=== PATIENT | female | born 1985 | race Caucasian/White ===

== ENCOUNTER 2019-03-05 18:45 | Emergency (ER) | payer MEDICAID, OTHER ==
[2019-03-05 19:18] VITALS: BP 122/80
[2019-03-05] MEDS ORDERED: TETRACAINE HCL 0.5% OPH SOLN 4 ML OS ONE (19:45)
[2019-03-05] MEDS ORDERED: ERYTHROMYCIN 0.5% OPH OINT 1 GM UNIT DOSE OS ONE (20:26)
[2019-03-05] MEDS ORDERED: KETOROLAC TROMETHAMINE 0.45% 4 DROP/0.4 ML DROPERETTE OS ONE ×2 (20:28→20:52)
--- NOTE | 2019-03-05 20:31 | ER Document Report ---
ED Eye Complaint - General Mode of Arrival: Ambulatory Information source: Patient TRAVEL OUTSIDE OF THE [place] IN LAST 30 DAYS: No - HPI Eye location: Left Injury: Yes Occurred at: Outdoors, Public place, Work Quality of pain: Burning, Sharp Severity: Moderate Pain Level: 3 Exposure: Projectile Safety glasses worn: No Contact lenses worn: No Associated symptoms: Burning, Pain, Photophobia - General Chief Complaint: Eye Problem Stated Complaint: EYE ISSUES Time Seen by Provider: 03/05/19 19:45 Primary Care Provider: CHET FELIPE MD [ACTIVE STAFF] - Follow up tomorrow LOCALMD,ROSY [Primary Care Provider] - Follow up as needed Notes: 33-year-old female presented to ED for pain redness and bump on her eye. She states she was working at the [employer] on Wednesday when she felt like something flew in her eye. She states her eye got red on Wednesday and then worse last night. She states he noticed the bump yesterday and it was larger today. She states the eye is more painful. She states she has had stye before but never one on an eyeball. Patient is alert oriented respirations regular and unlabored speaking in full sentences walks with a even steady gait. (PATIENCE MCNEAL) - Related Data Allergies/Adverse Reactions: No Known Allergies Allergy (Verified 03/05/19 18:57) Past Medical History - General Information source: Patient - Social History Smoking Status: Current Every Day Smoker Cigarette use (# per day): Yes - Half pack a day Chew tobacco use (# tins/day): No Smoking Education Provided: Yes - 4 minutes Frequency of alcohol use: None Drug Abuse: Marijuana, Other - On methadone due to opiate addiction Occupation: Skater at [employer] Lives with: Parents Family History: Reviewed & Not Pertinent Patient has suicidal ideation: No Patient has homicidal ideation: No - Past Medical History Cardiac Medical History: Reports: None Pulmonary Medical History: Reports: None EENT Medical History: Reports: Eyes - Stye Neurological Medical History: Reports: None Endocrine Medical History: Reports: None Renal/ Medical History: Reports: Hx Ovarian Cysts Malignancy Medical History: Reports: None GI Medical History: Reports: None Musculoskeletal Medical History: Reports None Skin Medical History: Reports None Psychiatric Medical History: Reports: Hx Anxiety Traumatic Medical History: Reports: None Infectious Medical History: Reports: None Past Surgical History: Reports: Hx Gynecologic Surgery - Ovarian cyst removed x3 - Immunizations Immunizations up to date: Yes Review of Systems - Review of Systems Constitutional: No symptoms reported EENT: Eye pain, Tearing, Other - Injury to eye Cardiovascular: No symptoms reported Respiratory: No symptoms reported Gastrointestinal: No symptoms reported Genitourinary: No symptoms reported Female Genitourinary: No symptoms reported Musculoskeletal: No symptoms reported Skin: No symptoms reported Hematologic/Lymphatic: No symptoms reported Neurological/Psychological: No symptoms reported -: Yes All other systems reviewed and negative Physical Exam - Vital signs Interpretation: Normal - General General appearance: Appears well, Alert - HEENT Head: Normocephalic, Atraumatic Eyes: Normal, Tears Conjunctiva: Injected Cornea: Corneal abrasion, Flourescein stain uptake Extraocular movements intact: Yes Eyelashes: Normal Pupils: PERRL Visual acuity- Right eye: 20/25 Visual acuity- Left eye: 20/25 Visual acuity- Both eyes: 20/20 Corrective lenses worn: No Visual cesar normal: Yes Ears: Normal External canal: Normal Tympanic membrane: Normal Sinus: Normal Nasal: Normal Mouth/Lips: Normal Mucous membranes: Normal Pharynx: Normal Neck: Normal - Respiratory Respiratory status: No respiratory distress Chest status: Nontender Breath sounds: Normal Chest palpation: Normal - Cardiovascular Rhythm: Regular Heart sounds: Normal auscultation Murmur: No - Abdominal Inspection: Normal Distension: No distension Bowel sounds: Normal Tenderness: Nontender Organomegaly: No organomegaly - Back Back: Normal, Nontender - Extremities General upper extremity: Normal inspection, Nontender, Normal color, Normal ROM, Normal temperature General lower extremity: Normal inspection, Nontender, Normal color, Normal ROM, Normal temperature, Normal weight bearing. No: Paul's sign - Neurological Neuro grossly intact: Yes Cognition: Normal Orientation: AAOx4 [place] Coma Scale Eye Opening: Spontaneous [place] Coma Scale Verbal: Oriented [place] Coma Scale Motor: Obeys Commands [place] Coma Scale Total: 15 Speech: Normal Motor strength normal: LUE, RUE, LLE, RLE Sensory: Normal - Psychological Associated symptoms: Normal affect, Normal mood - Skin Skin Temperature: Warm Skin Moisture: Dry Skin Color: Normal - Vital signs Vitals: Temp Pulse Resp BP Pulse Ox 98.3 F 76 20 122/80 98 03/05/19 19:15 03/05/19 19:15 03/05/19 19:15 03/05/19 19:15 03/05/19 19:15 Course - Re-evaluation Re-evalutation: 03/05/19 20:[address] Camacho who came over and examined the eye for me. She stated it looked like she has a Pinguecula as well as a corneal abrasion. There flourscein uptake to the corneal abrasion as well as the pinguecula. She recommended treatment with erythromycin eye ointment and ketorolac drops and have patient call Dr. Felipe in the morning at 8:00 and schedule a follow-up appointment with ophthalmology tomorrow. (PATIENCE MCNEAL) 03/06/19 03:04 I did personally seen and examined this patient in conjunction with Patience Mcneal, nurse practitioner. Patient states she felt like something flew into her eye while she was at work recently and now complains of pain in her left eye. Patient does have a pinguecula near the nasal aspect of her left eye however this should not be causing her pain. It does have floor seen uptake and this is unusual as well. When I numbed the eye with tetracaine and then used the Q-tip to touch the pinguecula a small amount of purulent discharge was noted however there is no evidence of ulceration or hypopyon. No foreign body was noted. This will be treated as a corneal abrasion and patient is recommended to follow-up with Dr. Felipe, the restaurant hospitality manager in the morning. Patient will be started on erythromycin ointment and ketorolac drops. Eye exam did not reveal any cell and flare in the anterior chamber. (LISA CAMACHO) - Vital Signs Vital signs: Temp Pulse Resp BP Pulse Ox 98.3 F 76 20 122/80 98 03/05/19 19:15 03/05/19 19:15 03/05/19 19:15 03/05/19 19:15 03/05/19 19:15 Discharge - Discharge Clinical Impression: Pinguecula of left eye Cornea abrasion Qualifiers: Encounter type: initial encounter Laterality: left Qualified Code(s): S05.02XA - Injury of conjunctiva and corneal abrasion without foreign body, left eye, initial encounter Condition: Stable Disposition: HOME, SELF-CARE Instructions: Family Physicians / Practices Additional Instructions: Corneal Abrasion You have a corneal abrasion, a scratch on the surface of the eye. The pain of a corneal abrasion feels like a sharp particle in the eye. Usually, antibiotics are placed in the eye to prevent infection. Occasionally, medication will be placed in the eye to dilate the pupil. This is done to relieve some of your discomfort and is only temporary. Pain medication may be required. Don't drive or operate machinery until you have the use of both your eyes. The abrasion usually is healed in one or two days. A follow-up examination to confirm healing is recommended. Call the doctor or return at once if you develop severe pain, decreasing vision, eye swelling, or purulent drainage. Erythromycin You have been given an antibiotic of the erythromycin class. Medication is an eye ointment that she must put in your eye. Put a small ribbon of ointment in the bottom lid of your left eye. These antibiotics are used for many infections, especially in penicillin-allergic patients. They're particularly useful for infections of the respiratory system. The medication will be most effective if taken before or at least two hours after meals. However, many persons will have nausea or stomach cramping with erythromycin. If this occurs, try taking the medicine with food. If the side effects are still intolerable, contact your doctor. You should not take erythromycin with non-sedating antihistamines such as Seldane or Hismanal. Call the doctor at once if you develop rash, itching, shortness of breath, or lightheadedness. You have been given a small tube of ketorolac which is eyedrops for inflammation and pain. Put 1 drop in the left eye 4 times a day. Please call the restaurant hospitality manager at 8:00 in the morning to schedule a follow-up appointment tomorrow morning for your corneal abrasion let her know you were seen in the emergency room cl[place] and Dr. Camacho recommended follow-up tomorrow morning. FOLLOW-UP CARE: If you have been referred to a physician for follow-up care, call the physicians office for an appointment as you were instructed or within the next two days. If you experience worsening or a significant change in your symptoms, notify the physician immediately or return to the Emergency Department at any time for re-evaluation. Forms: Return to Work Referrals: LOCALMD,NO [Primary Care Provider] - Follow up as needed CHET FELIPE MD [ACTIVE STAFF] - Follow up tomorrow
== END 2019-03-05 21:00 | disposition home or self-care (01) ==
LOC: ER 18:45
DX: H11.152 Pinguecula, left eye (principal); S05.02XA Injury of conjunctiva and corneal abrasion without foreign body, left eye, initial encounter; F17.210 Nicotine dependence, cigarettes, uncomplicated; X58.XXXA Exposure to other specified factors, initial encounter; Y92.511 Restaurant or cafe as the place of occurrence of the external cause; Y99.0 Civilian activity done for income or pay
CPT/HCPCS: 99283; J3490